=== PATIENT | female | born 1990 | race Caucasian/White ===

== ENCOUNTER 2016-04-16 10:33 | Emergency (ER) | payer OTHER ==
[2016-04-16 10:49] LABS: COLOR YELLOW; LEUKOCYTE ESTERASE,URINE NEGATIVE (NEGATIVE); NITRITE,URINE NEGATIVE (NEGATIVE)
[2016-04-16 10:53] VITALS: BP 150/78; PULSE 87; RESP 18; TEMP 98; O2SAT 97
--- NOTE | 2016-04-16 11:06 | UCPHY ---
H & P Patient Type: New Chief Complaint Nursing Narrative: c/o N/D/Night sweets/fevers/chills/thirsty/ cough/congestion for several days Time Seen by Provider: 04/16/16 10:48 HPI/ROS: CHIEF COMPLAINT: Temperature regulation HISTORY OF PRESENT ILLNESS: The patient is a 25-year-old female who states that she has had difficulty regulating her temperature for the last 2 weeks. she and her mom state that she had pancreatitis 3 months ago and spent 2 weeks in the hospital. She states that it was idiopathic but that she was drinking heavily just prior to the episode. She had a CT scan done that was negative at the time. Also a endoscopy that was unremarkable. She recovered from this and was doing well until about the last couple weeks. She states that she is having night sweats and hot flashes during the day. She denies chest pain or shortness of breath. She denies having any abdominal pain currently. She denies risk of . No urinary symptoms. No vaginal bleeding or discharge. No concern for STD. Her mom also states that she has been drinking large amounts of water. She did begin taking Celexa 3 weeks ago and feels that it is helping with her anxiety and depression. It does have dry mouth and diaphoresis listed as a side effect. She has not had a fever. REVIEW OF SYSTEMS: Constitutional: See HPI EENTM: denies: blurred vision, double vision, nose congestion Respiratory: denies: cough, shortness of breath Cardiac: denies: chest pain, irregular heart rate, lightheadedness, palpitations Gastrointestinal/Abdominal: denies: abdominal pain, diarrhea, nausea, vomiting, blood streaked stools Genitourinary: denies: dysuria, frequency, hematuria, pain Musculoskeletal: denies: joint pain, muscle pain Skin: denies: lesions, rash, jaundice, bruising Neurological: denies: headache, numbness, paresthesia, tingling, dizziness, weakness Hematologic/Lymphatic: denies: blood clots, easy bleeding, easy bruising Immunologic/allergic: denies: HIV/AIDS, transplant EXAM: GENERAL: anxious, tearful HEAD: Atraumatic, normocephalic. EYES: Pupils equal round and reactive to light, extraocular movements intact, sclera anicteric, conjunctiva are normal. ENT: TMs normal, nares patent, oropharynx clear without exudates. Moist mucous membranes. NECK: Normal range of motion, supple without lymphadenopathy or JVD. LUNGS: Breath sounds clear to auscultation bilaterally and equal. No wheezes rales or rhonchi. HEART: Regular rate and rhythm without murmurs, rubs or gallops. ABDOMEN: Soft, nontender, normoactive bowel sounds. No guarding, no rebound. No masses appreciated. BACK: No CVA tenderness, no spinal tenderness, step-offs or deformities EXTREMITIES: Normal range of motion, no pitting or edema. No clubbing or cyanosis. NEUROLOGICAL: Cranial nerves II through XII grossly intact. Normal speech, normal gait. 5/5 strength, normal movement in all extremities, normal sensation PSYCH: Normal mood, normal affect. SKIN: Warm, dry, normal turgor, no visible rashes or lesions. Source: Patient Exam Limitations: No limitations - Personal History LMP (Females 10-55): 8-14 Days Ago Current Tetanus Diphtheria and Acellular Pertussis (TDAP): Yes - Medical/Surgical History Hx Asthma: No Hx Chronic Respiratory Disease: No Hx Diabetes: No Hx Cardiac Disease: No Hx Renal Disease: No Hx Cirrhosis: No Hx Alcoholism: No Other PMH: pancreatits/TA - Family History Significant Family History: No pertinent family hx - Social History Smoking Status: Former smoker Alcohol Use: None Drug Use: None Constitutional: Initial Vital Signs Temperature (C) 36.6 C 04/16/16 10:50 Heart Rate 87 04/16/16 10:50 Respiratory Rate 18 04/16/16 10:50 Blood Pressure 150/78 H 04/16/16 10:50 O2 Sat (%) 97 04/16/16 10:50 O2 Delivery Mode Room Air Allergies/Adverse Reactions: No Known Allergies Allergy (Unverified 04/16/16 10:48) Home Medications: Medication Instructions Recorded Celexa 04/16/16 Eszopiclone [Lunesta] 2 mg PO HS #7 tablet 04/16/16 Medical Decision Making ED Course/Re-evaluation: I spoke with the patient's mom again who is declining blood cultures. She is concerned about cost. She understands that we cannot rule out bacteremia or endocarditis without it. She would like the thyroid Checked and to be checked for diabetes. She also states that she recently had a pancreatic biopsy that was negative. Again the patient denies abdominal pain or tenderness. Her exam is reassuring. The patient is tearful and his cried several times during our discussion . She is requesting sleep medication but does not want to take any ambien because she has taken that in the past. I feel that there is a large emotional component. She states that she does feel depressed but not suicidal. She thought that her Celexa probably helping however it does have dry mouth and sweating listed decide affects which could explain her thirstiness and diaphoresis. She also told her mom that she tends to have a hard time not drinking when she is not sleeping well. 12:50 p.m. patient is feeling somewhat more calm and improved. She will stop taking the Celexa to see if this helps with her sweats and dry mouth. The half- life is 35 hours. She will follow up with Dr. Rabia Oliva on Saturday as previously scheduled. We did not find any new findings today and she understands this as does her mom. They asked for a copy of the lab work. They also asked for a short term prescription for Lunesta. Differential Diagnosis: Partial list of the Differential diagnosis considered include but were not limited to; anxiety, medication effect, thyroid abnormality, and although unlikely based on the history and physical exam, I also considered liver dysfunction, bacteremia, mononucleosis, influenza. I discussed these differential diagnoses and the plan with the patient as well as the usual and expected course. The patient understands that the diagnosis is provisional and that in medicine we are not always correct and that further workup is often warranted. Usual and customary warnings were given. All of the patient's questions were answered. The patient was instructed to return to the emergency department should the symptoms at all worsen or return, otherwise to followup with the physician as we discussed. - Data Points Laboratory Results: Laboratory Results 04/16/16 11:35 04/16/16 11:35 04/16/16 04/16/16 04/16/16 11:35 11:00 10:40 WBC 3.24 L 10^3/uL (3.80-9.50) RBC 4.26 10^6/uL (4.18-5.33) Hgb 11.6 L g/dL (12.6-16.3) Hct 35.3 L % (38.0-47.0) MCV 82.9 fL (81.5-99.8) MCH 27.2 L pg (27.9-34.1) MCHC 32.9 g/dL (32.4-36.7) RDW 15.8 H % (11.5-15.2) Plt Count 311 10^3/uL (150-400) MPV 9.2 fL (8.7-11.7) Neut % (Auto) 40.1 % (39.3-74.2) Lymph % (Auto) 49.4 H % (15.0-45.0) [place] % (Auto) 6.2 % (4.5-13.0) Eos % (Auto) 3.7 % (0.6-7.6) Baso % (Auto) 0.6 % (0.3-1.7) Nucleat RBC Rel Count 0.0 % (0.0-0.2) Absolute Neuts (auto) 1.30 L 10^3/uL (1.70-6.50) Absolute Lymphs (auto) 1.60 10^3/uL (1.00-3.00) Absolute Monos (auto) 0.20 L 10^3/uL (0.30-0.80) Absolute Eos (auto) 0.12 10^3/uL (0.03-0.40) Absolute Basos (auto) 0.02 10^3/uL (0.02-0.10) Absolute Nucleated RBC 0.00 10^3/uL (0-0.01) Immature Gran % 0.0 % (0.0-1.1) Immature Gran # 0.00 10^3/uL (0.00-0.10) PT 12.3 SEC (12.0-15.0) INR 0.93 (0.83-1.16) APTT 26.7 SEC (23.0-38.0) Sodium 141 mEq/L (134-144) Potassium 4.1 mEq/L (3.5-5.2) Chloride 107 mEq/L (97-110) Carbon Dioxide 23 mEq/l (22-31) Anion Gap 11 mEq/L (8-16) BUN 13 mg/dL (7-23) Creatinine 0.6 mg/dL (0.6-1.0) Estimated GFR > 60 Glucose 102 H mg/dL (70-100) Calcium 9.5 mg/dL (8.5-10.4) Total Bilirubin 0.6 mg/dL (0.1-1.4) Conjugated Bilirubin 0.3 mg/dL (0.0-0.5) Unconjugated Bilirubin 0.3 mg/dL (0.0-1.1) AST 30 IU/L (14-46) ALT 41 IU/L (9-52) Alkaline Phosphatase 77 IU/L (38-126) Total Protein 7.9 g/dL (6.3-8.2) Albumin 4.1 g/dL (3.5-5.0) Triglycerides 272 H mg/dL (35-135) TSH 2.360 uIU/mL (0.465-4.680) Free T4 0.91 ng/dL (0.59-2.19) Urine Color YELLOW Urine Appearance CLEAR Urine pH 6.0 (5.0-7.5) Ur Specific [place] 1.025 (1.002-1.030) Urine Protein NEGATIVE (NEGATIVE) Urine Ketones NEGATIVE (NEGATIVE) Urine Blood NEGATIVE (NEGATIVE) Urine Nitrate NEGATIVE (NEGATIVE) Urine Bilirubin NEGATIVE (NEGATIVE) Urine Urobilinogen 0.2 EU (0.2-1.0) Ur Leukocyte Esterase NEGATIVE (NEGATIVE) Urine Glucose NEGATIVE (NEGATIVE) Urine Test NEGATIVE Monoscreen NEGATIVE (NEGATIVE) Influenza Typ A,B (DFA) NEGATIVE FOR FLU (NEGATIVE) Departure - Departure Disposition: Home, Routine, Self-Care Clinical Impression: Diaphoresis Anemia Qualifiers: Qualifier Code: (D64.9) Anemia, unspecified Condition: Fair Instructions: Anemia (ED) Additional Instructions: Try discontinuing or Celexa and follow up with Dr. Oliva in 2 days. Report To her the results. Referrals: Rabia Oliva MD [Primary Care Provider] - As per Instructions Prescriptions: Eszopiclone [Lunesta] 2 mg PO HS #7 tablet - PQRS PQRS Measurement: Not applicable
[2016-04-16 11:39] LABS: ADD DIFF? NO; ADD MORPH? NO; ADD SCAN? NO; ATYPICAL LYMPHOCYTE FLAG 50 (0-99); FRAGMENT RBC FLAG 0 (0-99); HEMATOCRIT 35.3 % (38.0-47.0); HEMOGLOBIN 11.6 g/dL (12.6-16.3); LEFT SHIFT FLG 0 (0-99); LIPEMIA HEMOLYSIS FLAG 80 (0-99); MEAN CELL HEMOGLOBIN 27.2 pg (27.9-34.1); MEAN CELL HEMOGLOBIN CONCENTR. 32.9 g/dL (32.4-36.7); MEAN CELL VOLUME 82.9 fL (81.5-99.8); MEAN PLATELET VOLUME 9.2 fL (8.7-11.7); PLATELET CLUMPS FLAG 0 (0-99); PLATELET COUNT 311 10^3/uL (150-400); RED BLOOD CELL COUNT 4.26 10^6/uL (4.18-5.33); RED CELL DISTRIBUTION WIDTH 15.8 % (11.5-15.2)
[2016-04-16 11:55] LABS: INR 0.93 (0.83-1.16); PROTIME(PATIENT) 12.3 SEC (12.0-15.0)
[2016-04-16 11:56] LABS: APTT 26.7 SEC (23.0-38.0)
[2016-04-16 11:59] LABS: ALANINE AMINOTRANSFERASE 41 IU/L (9-52); ALBUMIN 4.1 g/dL (3.5-5.0); ALKALINE PHOSPHATASE 77 IU/L (38-126); ANION GAP 11 mEq/L (8-16); ASPARTATE AMINOTRANSFERASE 30 IU/L (14-46); BILIRUBIN,TOTAL 0.6 mg/dL (0.1-1.4); BILIRUBIN-CONJUGATED 0.3 mg/dL (0.0-0.5); BILIRUBIN-UNCONJUGATED 0.3 mg/dL (0.0-1.1); CALCIUM 9.5 mg/dL (8.5-10.4); CARBON DIOXIDE 23 mEq/l (22-31); CHLORIDE 107 mEq/L (97-110); CREATININE 0.6 mg/dL (0.6-1.0); GLOMERULAR FILTRATION RATE > 60; GLUCOSE 102 mg/dL (70-100); POTASSIUM 4.1 mEq/L (3.5-5.2); SODIUM 141 mEq/L (134-144); TOTAL PROTEIN 7.9 g/dL (6.3-8.2); TRIGLYCERIDE 272 mg/dL (35-135)
== END 2016-04-16 13:05 | disposition home or self-care (01) ==
LOC: CED 10:33
DX: R61 Generalized hyperhidrosis (principal); D64.9 Anemia, unspecified
CPT/HCPCS: 80048-PO; 80076-PO; 81003-PO; 81025-PO; 84439-PO; 84443-PO; 84478-PO; 85025-PO; 85610-PO; 85730-PO; 86308-PO; 87400-PO; 99204-PO; G0463-PO